=== PATIENT | female | born 1970 | race Caucasian/White ===

== ENCOUNTER 2024-11-10 15:46 | Emergency (ER) | payer BC ==
[2024-11-10] MEDS ORDERED: dexAMETHasone 10 MG/ML VIAL ONE (16:53)
[2024-11-10] MEDS ORDERED: ONDANSETRON 4 MG/2 ML VIAL ONE (16:53)
[2024-11-10] MEDS ORDERED: KETOROLAC 30 MG/ML INJ ONE (16:54)
[2024-11-10] MEDS ORDERED: NA CHLORIDE 0.9% 1,000 ML ONE (16:54)
--- NOTE | 2024-11-10 17:19 | RAD REPORT ---
EXAMINATION: C Spine Wo Con CLINICAL INDICATION: Female, 53 years old. PAIN TECHNIQUE: Axial CT images through the cervical spine were obtained without intravenous contrast. Sag ittal and coronal reformatted images were created from the data set. One or more of the following dose reduction techniques were used: Automated exposure control, adjustment of the mA and/or kV accor ding to patient size, and/or iterative reconstruction. Unless otherwise specified, incidental findings do not require dedicated imaging follow-up. [id number]. COMPARISON: No prior exam. FINDINGS: ALIGNMENT: Reversal of the normal cervical lordosis. BONE: Vertebral body heights are maintained. No aggressive osseous lesions. DEGENERATIVE: Mild to moderate disc height loss at C3-4 with moderate bilateral neural foraminal narr owing. Moderate disc height loss is also present at C6-7 which results in moderate bilateral neural foraminal narrowing. No high-grade central spinal stenosis. SOFT TISSUE: No significant abnormalities in the soft tissue of the neck. The visualized lung apices are clear. IMPRESSION: No acute cervical spine abnormalities. Cervical spondylosis particularly at C3-4 and C6-7 with bilate ral neural foraminal narrowing.
[2024-11-10 17:33] LABS: Absolute Eosinophils 0.1 K/uL (0-0.5); Absolute Lymphocytes (CBC) 2.3 K/uL (0.7-4.9); Absolute Monocytes 0.6 K/uL (0.1-1.3); Absolute Neutrophil 2.4 K/uL (1.8-8.0); Basophils % 0.5 % (0-1.3); Eosinophils % 1.6 % (0-4.4); Hematocrit 33.6 % (36.0-45.0); Hemoglobin 11.7 g/dL (12.0-15.0); Lymphocytes % 43.2 % (15.3-44.8); MCH 31.9 pg (27.0-35.0); MCHC 34.9 g/dL (32.0-36.0); MCV 91.3 fL (80-100); MPV 6.5 fL (7.6-11.3); Monocytes % 10.5 % (3.3-12.3); Neutrophils % 44.2 % (41.7-73.7); Platelets 295 thou/uL (152-406); RBC Red Blood Cell Count 3.68 M/uL (3.86-4.86); Red Cell Distribution Width 13.8 % (12.1-15.2)
[2024-11-10 17:49] LABS: Specific Gravity 1.006 (1.005-1.030); Urine Bilirubin NEGATIVE (Negative); Urine Blood Negative (Negative); Urine Clarity Clear (Clear); Urine Color Colorless (Yellow); Urine Glucose NEGATIVE (Negative); Urine Ketones NEGATIVE (Negative); Urine Microscopic Reflex YN NO UMIC; Urine Nitrite NEGATIVE (Negative); Urine Protein NEGATIVE (Negative); Urine Urobilinogen Normal (Normal)
--- NOTE | 2024-11-10 17:53 | ER ---
Nurse's Notes [facility] Name: Dana Green Age: 53 yrs Sex: Female : 1970 Arrival Date: 11/10/2024 Time: 15:46 Bed 10 Private MD: Diagnosis: Cervical disc disorder with radiculopathy, cervicothoracic region;Radiculopathy, cervicothoracic region;Unspecified symptoms and signs involving the musculoskeletal system Presentation: 11/10 15:56 Chief complaint:. Chief complaint: Patient states: i think i have a pinched nerve, I've iw been having trouble with my neck and back, on Tuesday I had a deep tissue massage and adjustment, hard to turn head to the right and my shoulder and into my left forearm feels on fire , had another adjustment yesterday. Coronavirus screen: At this time, the client does not indicate any symptoms associated with coronavirus-19. Ebola Screen: No symptoms or risks identified at this time. Initial Sepsis Screen: Does the patient meet any 2 criteria? No. Patient's initial sepsis screen is negative. Does the patient have a suspected source of infection? No. Patient's initial sepsis screen is negative. Risk Assessment: Do you want to hurt yourself or someone else? Patient reports no desire to harm self or others. Onset of symptoms was November 07, 2024. 15:56 Method Of Arrival: Ambulatory 15:56 Acuity: ENEIDA 3 iw Historical: - Allergies: 15:59 PENICILLINS; iw - Home Meds: 15:59 metformin 500 mg Oral tablet [Active]; iw - PMHx: 15:59 Hypercholesterolemia; Diabetes mellitus; Depressive disorder; Anxiety; iw - PSHx: 16:01 breast augmentation; section; carpal tunnel; iw - Immunization history:: Adult Immunizations up to date. - Infectious Disease History:: Denies. - Social history:: Smoking status: Reported history of juuling and/or vaping. - Family history:: not pertinent. Screenin:59 [facility] ED Fall Risk Assessment (Adult) History of falling in the last 3 months, hb including since admission No falls in past 3 months (0 pts) Confusion or Disorientation No (0 pts) Intoxicated or Sedated No (0 pts) Impaired Gait No (0 pts) Mobility Assist Device Used No (0 pt) Altered Elimination No (0 pt) Score/Fall Risk Level 0 - 2 = Low Risk Oriented to surroundings, Maintained a safe environment, Educated pt \T\ family on fall prevention, incl call for assistance when getting out of bed. Abuse screen: Denies threats or abuse. Denies injuries from another. Nutritional screening: No deficits noted. Tuberculosis screening: No symptoms or risk factors identified. Assessment: 16:59 General: Appears in no apparent distress. Behavior is calm, cooperative. Pain: Pain hb currently is 8 out of 10 on a pain scale. Neuro: Level of Consciousness is awake, alert, obeys commands, Oriented to person, place, time, situation, Reports headache. Cardiovascular: Patient's skin is warm and dry. Respiratory: Respiratory effort is even, unlabored, Respiratory pattern is regular, symmetrical. GI: No signs and/or symptoms were reported involving the gastrointestinal system. : No signs and/or symptoms were reported regarding the genitourinary system. EENT: No signs and/or symptoms were reported regarding the EENT system. Derm: Skin is pink, warm \T\ dry. Musculoskeletal: No signs and/or symptoms reported regarding the musculoskeletal system. Vital Signs: 15:56 BP 143 / 73; Pulse 66; Resp 19; Temp 97.3; Pulse Ox 100% on R/A; Weight 68.04 kg; iw Height 5 ft. 6 in. ; Pain 8/10; 15:56 Body Mass Index 24.21 (68.04 kg, 167.64 cm) iw 15:56 Pain Scale: Adult ED Course: 15:50 Patient arrived in ED. im 15:58 Triage completed. iw 16:02 Arm band placed on. iw 16:27 Duran Patel MD is Attending Physician. xiao 16:[address] via wheelchair. iw 16:59 Caroline Benitez, RN is Primary Nurse. hb 16:59 Patient has correct armband on for positive identification. Provided Education on: use hb of call light . 17:12 CT C Spine In Process Unspecified. EDMS 17:26 Initial lab(s) drawn, by me, sent to lab. Inserted saline lock: 20 gauge in right hb antecubital area, using aseptic technique. Blood collected. Flushed with 10 mL NS. 17:27 Comprehensive Metabolic Panel Sent. hb 17:27 CBC with Diff Sent. hb 17:38 Urinalysis w/ reflexes Sent. hb 17:52 Jordan Toussaint MD is Referral Physician. xiao Administered Medications: 17:26 Drug: Decadron - Dexamethasone IVP 10 mg IVP once Route: IVP; Site: right antecubital; hb 18:57 Follow up: Response: No adverse reaction hb 17:26 Drug: Ketorolac IVP 30 mg IVP once Route: IVP; Site: right antecubital; hb 18:57 Follow up: Response: No adverse reaction hb 17:26 Drug: Ondansetron IVP 4 mg IVP once; over 2 minutes Route: IVP; Site: right antecubital;hb 18:57 Follow up: Response: No adverse reaction hb 17:26 Drug: NS 0.9% IV 1000 ml IV at 1000 ml once; to be given as a bolus over 60 minutes hb Route: IV; Rate: 1000 ml; Site: right antecubital; 18:35 Drug: fentaNYL (PF) IVP 50 mcg IVP once Route: IVP; Site: right antecubital; hb 18:57 Follow up: Response: No adverse reaction hb 18:35 Drug: Diazepam PO 10 mg PO once Route: PO; hb 18:56 Follow up: Response: No adverse reaction hb Medication: 16:59 VIS not applicable for this client. hb Outcome: 17:53 Discharge ordered by . [facility] 18:58 Patient left the ED. hb Signatures: Dispatcher [employer] EDMS Duran Patel MD MD cha Williams, Irene, RN RN Caroline Benitez RN RN Janice Solitario Corrections: (The following items were deleted from the chart) 15:59 15:56 BP 143 / 73; Pulse 66bpm; Resp 19bpm; Pulse Ox 100% RA; Temp 97.3F; iw iw
--- NOTE | 2024-11-10 17:53 | EDPHYS ---
Physician Documentation [facility] Name: Dana Green Age: 53 yrs Sex: Female : 1970 Arrival Date: 11/10/2024 Time: 15:46 Bed 10 Private MD: Duran Barba HPI: 11/10 17:42 This 53 yrs old Female presents to ER via Ambulatory with complaints of Neck xiao Pain, <24hrs Old, Stiff Neck. 17:42 The patient or guardian complains of decreased range of motion, pain, that is chronic. xiao The symptoms are located diffusely. Onset: The symptoms/episode began/occurred 3 day(s) ago. Context: The problem was sustained at an unknown location. Associated signs and symptoms: The patient has no apparent associated signs or symptoms. The pain does not radiate. Modifying factors: The symptoms are alleviated by remaining still, the symptoms are aggravated by movement. Severity of symptoms: At their worst the symptoms were mild, moderate, in the emergency department the symptoms are unchanged. The patient has experienced similar episodes in the past, a few times. Historical: - Allergies: 15:59 PENICILLINS; iw - Home Meds: 15:59 metformin 500 mg Oral tablet [Active]; iw - PMHx: 15:59 Hypercholesterolemia; Diabetes mellitus; Depressive disorder; Anxiety; iw - PSHx: 16:01 breast augmentation; section; carpal tunnel; iw - Immunization history:: Adult Immunizations up to date. - Infectious Disease History:: Denies. - Social history:: Smoking status: Reported history of juuling and/or vaping. - Family history:: not pertinent. ROS: 17:42 Constitutional: Negative for fever, chills, and weight loss, Eyes: Negative for injury, xiao pain, redness, and discharge, ENT: Negative for injury, pain, and discharge, Cardiovascular: Negative for chest pain, palpitations, and edema, Respiratory: Negative for shortness of breath, cough, wheezing, and pleuritic chest pain, Abdomen/GI: Negative for abdominal pain, nausea, vomiting, diarrhea, and constipation, Back: Negative for injury and pain, : Negative for injury, bleeding, discharge, and swelling, MS/Extremity: Negative for injury and deformity, Skin: Negative for injury, rash, and discoloration, Neuro: Negative for headache, weakness, numbness, tingling, and seizure, Psych: Negative for depression, anxiety, suicide ideation, homicidal ideation, and hallucinations, Allergy/Immunology: Negative for hives, rash, and allergies, Endocrine: Negative for neck swelling, polydipsia, polyuria, polyphagia, and marked weight changes, Hematologic/Lymphatic: Negative for swollen nodes, abnormal bleeding, and unusual bruising, 17:42 Neck: Positive for pain with movement, pain at rest, stiffness, Exam: 17:42 Constitutional: This is a well developed, well nourished patient who is awake, alert, xiao and in no acute distress. Head/Face: Normocephalic, atraumatic. Eyes: Pupils equal round and reactive to light, extra-ocular motions intact. Lids and lashes normal. Conjunctiva and sclera are non-icteric and not injected. Cornea within normal limits. Periorbital areas with no swelling, redness, or edema. ENT: Nares patent. No nasal discharge, no septal abnormalities noted. Tympanic membranes are normal and external auditory canals are clear. Oropharynx with no redness, swelling, or masses, exudates, or evidence of obstruction, uvula midline. Mucous membranes moist. Chest/axilla: Normal chest wall appearance and motion. Nontender with no deformity. No lesions are appreciated. Cardiovascular: Regular rate and rhythm with a normal S1 and S2. No gallops, murmurs, or rubs. Normal PMI, no JVD. No pulse deficits. Respiratory: Lungs have equal breath sounds bilaterally, clear to auscultation and percussion. No rales, rhonchi or wheezes noted. No increased work of breathing, no retractions or nasal flaring. Abdomen/GI: Soft, non-tender, with normal bowel sounds. No distension or tympany. No guarding or rebound. No evidence of tenderness throughout. Back: No spinal tenderness. No costovertebral tenderness. Full range of motion. Skin: Warm, dry with normal turgor. Normal color with no rashes, no lesions, and no evidence of cellulitis. MS/ Extremity: Pulses equal, no cyanosis. Neurovascular intact. Full, normal range of motion., bilateral aka Neuro: Awake and alert, GCS 15, oriented to person, place, time, and situation. Cranial nerves II-XII grossly intact. Motor strength 5/5 in all extremities. Sensory grossly intact. Cerebellar exam normal. Normal gait. Psych: Awake, alert, with orientation to person, place and time. Behavior, mood, and affect are within normal limits. 17:42 Neck: External neck: is normal, no acute changes, C-spine: no acute changes, Thyroid: appears normal, Trachea: is midline with no obvious abnormalities, ROM/movement: limited range of motion, in any direction, Lymph nodes: no appreciated lymphadenopathy, Vital Signs: 15:56 BP 143 / 73; Pulse 66; Resp 19; Temp 97.3; Pulse Ox 100% on R/A; Weight 68.04 kg; iw Height 5 ft. 6 in. ; Pain 8/10; 15:56 Body Mass Index 24.21 (68.04 kg, 167.64 cm) iw 15:56 Pain Scale: Adult iw MDM: 16:27 Medical Screening Exam initiated xiao 17:45 Differential diagnosis: arthritis, C-Spine Fracture Cervical Disc Herniation Cervical xiao Discogenic Pain Cervical Facet Syndrome Cervical Raiculopathy Cervical Spondylosis cervical strain, Degenerative Disc Disease fracture, Neck Contusion Spinal Cord Compression Unstable Vertebral Fracture. Data reviewed: vital signs, nurses notes, lab test result(s), radiologic studies, CT scan. Consideration of Admission/Observation Escalation of care including admission/observation considered. I considered the following discharge prescriptions or medication management in the emergency department Medications were administered in the Emergency Department. See MAR. Independent interpretation of the following test(s) in the Emergency Department CT Scan: My interpretation is ct c spine. Test considered but Not performed: MRI: no mri c spine. Historians other than the Patient: Friend: friend well informed. Care significantly affected by the following chronic conditions: Diabetes. 11/10 16:28 Order name: CBC with Diff; Complete Time: 17:38 [facility] 11/10 16:28 Order name: Comprehensive Metabolic Panel; Complete Time: 18:22 [facility] 11/10 16:28 Order name: Urinalysis w/ reflexes; Complete Time: 17:56 [facility] 11/10 16:28 Order name: CT C Spine; Complete Time: 17:38 [facility] Administered Medications: 17:26 Drug: Decadron - Dexamethasone IVP 10 mg IVP once Route: IVP; Site: right antecubital; hb 18:57 Follow up: Response: No adverse reaction hb 17:26 Drug: Ketorolac IVP 30 mg IVP once Route: IVP; Site: right antecubital; hb 18:57 Follow up: Response: No adverse reaction hb 17:26 Drug: Ondansetron IVP 4 mg IVP once; over 2 minutes Route: IVP; Site: right antecubital;hb 18:57 Follow up: Response: No adverse reaction hb 17:26 Drug: NS 0.9% IV 1000 ml IV at 1000 ml once; to be given as a bolus over 60 minutes hb Route: IV; Rate: 1000 ml; Site: right antecubital; 18:35 Drug: fentaNYL (PF) IVP 50 mcg IVP once Route: IVP; Site: right antecubital; hb 18:57 Follow up: Response: No adverse reaction hb 18:35 Drug: Diazepam PO 10 mg PO once Route: PO; hb 18:56 Follow up: Response: No adverse reaction hb Disposition Summary: 11/10/24 17:53 Discharge Ordered Notes: Location: Home xiao Problem: new xiao Symptoms: have improved xiao Condition: Stable xiao Diagnosis - Cervical disc disorder with radiculopathy, cervicothoracic region xiao - Radiculopathy, cervicothoracic region xiao - Unspecified symptoms and signs involving the musculoskeletal system xiao Followup: xiao - With: Private Physician - When: 2 - 3 days - Reason: Recheck today's complaints, Continuance of care, Re-evaluation by your physician Followup: xiao - With: Jordan Toussaint MD - When: 2 - 3 days - Reason: Recheck today's complaints, Re-evaluation by your physician Discharge Instructions: - Discharge Summary Sheet xiao - Cervical Radiculopathy xiao - Herniated Disk xiao - Musculoskeletal Pain xiao Forms: - Medication Reconciliation Form xiao - Antibiotic Education xiao - Prescription Opioid Use xiao - Patient Portal Instructions [facility] - Leadership Thank You Letter [facility] Prescriptions: - methocarbamol 750 mg Oral tablet - take 1 tablet ORAL route 4 times per day; 28 tablet; Refills: 0, Product xiao Selection Permitted - Ibuprofen 600 mg Oral tablet - take 1 tablet ORAL route every 6 hours As needed take with food; 20 tablet; xiao Refills: 0, Product Selection Permitted - Tylenol-Codeine #3 300mg-30mg Oral tablet - take 2 tablets ORAL route every 6 hours As needed; 20 tablet; Refills: 0, xiao Product Selection Permitted - Dexamethasone 4mg Oral tablet - take 1 tablet ORAL route daily for 4 days; 4 tablet; Refills: 0, Product xiao Selection Permitted Signatures: Dispatcher [employer] Duran Bolaños MD MD cha Williams, Irene RN RN Caroline Villanueva RN RN hb
[2024-11-10 18:05] LABS: Albumin 3.9 g/dL (3.4-5.0); Albumin/Globulin Ratio 1.3 (1.1-1.8); Anion Gap 7.4 mEq/L (5.0-15.0); Bilirubin Total 0.4 mg/dL (0.2-1.0); Globulin 2.9 g/dL (2.3-3.5); Potassium 4.4 mEq/L (3.5-5.1); Protein, Total 6.8 g/dL (6.4-8.2)
[2024-11-10] MEDS ORDERED: FENTANYL CITR 100 MCG/2 ML ONE (18:16)
[2024-11-10] MEDS ORDERED: DIAZEPAM 5 MG TABLET ONE (18:23)
[2024-11-10 19:02] VITALS: BP 143/73; TEMP 97.3; O2SAT 100
== END 2024-11-10 18:58 | disposition home or self-care (01) ==
LOC: ER 15:46
DX: M54.13 Radiculopathy, cervicothoracic region (principal); R29.91 Unspecified symptoms and signs involving the musculoskeletal system; Z98.82 Breast implant status
CPT/HCPCS: 85025; 36415; 81003; 80053; 72125; 96375; 96374; 99284; J3010; J1100; J2405; J7030